=== PATIENT | male | born 2000 | race Hispanic/Latino ===

== ENCOUNTER 2021-07-11 23:49 | Inpatient (IN) | payer BC, SELFPAY ==
[2021-07-12 00:43] LABS: Urine Blood 3+ (Negative); Urine Glucose Negative (Negative); Urine Protein 2+ (Negative); Urine pH 5.5 (5.0-7.0)
[2021-07-12] MEDS ORDERED: Ringers Lactate 1,000 ML IV ONE ×2 (00:50→02:02)
[2021-07-12 01:03] LABS: Absolute Lymphocytes (CBC) 0.8 K/uL (0.7-4.9); Basophils % 2.2 % (0-1.3); Hematocrit 44.1 % (39.6-49.0); MPV 9.8 fL (7.6-11.3); RBC Red Blood Cell Count 5.24 M/uL (4.33-5.43)
[2021-07-12 01:31] LABS: Blood Morphology Comment NOT SEEN (NOT SEEN); Platelet Estimate ADEQ
[2021-07-12 01:48] LABS: ALT/SGPT 47 U/L (12-78); Albumin 4.3 g/dL (3.4-5.0); Alkaline Phosphatase 79 U/L (45-117); BUN Blood Urea Nitrogen 15 mg/dL (7-18); Bicarbonate 26 mmol/L (21-32); Bilirubin Direct 0.2 mg/dL (0-0.2); Bilirubin Total 1.1 mg/dL (0.2-1.0); Glucose Level 120 mg/dL (74-106); Lipase 69 U/L (73-393); Potassium 3.7 mmol/L (3.5-5.1); Protein, Total 8.2 g/dL (6.4-8.2); Sodium Level 138 mmol/L (136-145)
[2021-07-12 01:49] LABS: AST/SGOT 350 U/L (15-37); Creatine Phosphokinase > 14000 U/L (39-308)
--- NOTE | 2021-07-12 02:23 | ER ---
Nurse's Notes [facility] Name: Luis Hooper Age: 20 yrs Sex: Male : 2000 Arrival Date: 07/11/2021 Time: 23:54 Bed 5 Private MD: Diagnosis: Rhabdomyolysis Presentation: 07/12 00:12 Chief complaint: Patient states: vomiting and body aches since yesterday. Coronavirus df1 screen: Vaccine status: Patient reports being unvaccinated. The client denies any previous COVID testing. Ebola Screen: Patient negative for fever greater than or equal to 101.5 degrees Fahrenheit, and additional compatible Ebola Virus Disease symptoms Patient denies exposure to infectious person. Patient denies travel to an Ebola-affected area in the 21 days before illness onset. Initial Sepsis Screen: Does the patient meet any 2 criteria? No. Patient's initial sepsis screen is negative. Does the patient have a suspected source of infection? No. Patient's initial sepsis screen is negative. Risk Assessment: Do you want to hurt yourself or someone else? Patient reports no desire to harm self or others. Onset of symptoms was July 10, 2021. 00:12 Method Of Arrival: Ambulatory df1 00:12 Acuity: SOLE 3 df1 00:16 Note Pt states woke up Friday morning feeling weak and vomiting. Today pt states df1 generalized body aches and fatigue. Last BM on Friday. Triage Assessment: 00:35 General: Appears in no apparent distress. Behavior is calm, cooperative. Pain: Denies cw2 pain. EENT: No deficits noted. Neuro: No deficits noted. Cardiovascular: No deficits noted. Respiratory: No deficits noted. GI: Reports nausea. Historical: - Allergies: 00:15 No Known Allergies; df1 - Home Meds: 00:15 None [Active]; df1 - PMHx: 00:15 None; df1 - PSHx: 00:15 None; df1 - Immunization history:: Adult Immunizations not up to date, Client reports having NOT received the Covid vaccine. - Social history:: Smoking status: Patient denies any tobacco usage or history of. - Code Status:: Full code. Screenin:36 Abuse screen: Denies threats or abuse. Nutritional screening: No deficits noted. cw2 Tuberculosis screening: No symptoms or risk factors identified. Fall Risk IV access (20 points). Assessment: 00:36 General: Appears in no apparent distress. Pain: Denies pain. Neuro: No deficits noted. cw2 Cardiovascular: No deficits noted. Respiratory: No deficits noted. GI: Abdomen is flat, non-distended. : No deficits noted. Vital Signs: 00:12 BP 134 / 93; Pulse 120; Resp 18; Temp 98.2(O); Pulse Ox 100% on R/A; Weight 52.57 kg; df1 Height 5 ft. 9 in. (175.26 cm); Pain 07/08; 00:12 Body Mass Index 17.12 (52.57 kg, 175.26 cm) df1 [place] Coma Score: 00:36 Eye Response: spontaneous(4). Verbal Response: oriented(5). Motor Response: obeys cw2 commands(6). Total: 15. ED Course: 07/11 23:54 Patient arrived in ED. cf2 07/12 00:15 Triage completed. df1 00:18 Aj Harp PA is PHCP. jr8 00:18 Mono Shaikh MD is Attending Physician. jr8 00:22 Valentin Olivia, RN is Primary Nurse. cw2 00:34 Basic Metabolic Panel Sent. cw2 00:34 CBC with Diff Sent. cw2 00:34 Hepatic Function Sent. cw2 00:34 Lipase Sent. cw2 00:35 Arm band placed on left wrist. Patient placed in an exam room, on a stretcher, on cw2 monitoring specialist, on pulse oximetry. 00:36 No apparent distress. cw2 00:36 No provider procedures requiring assistance completed. Initial lab(s) drawn, by ar, cw2 sent to lab. Urine collected: clean catch specimen, clear. Inserted saline lock: 20 gauge in right antecubital area, using aseptic technique. Blood collected. 00:36 Patient has correct armband on for positive identification. Bed in low position. Call cw2 light in reach. Side rails up X2. Door closed. Noise minimized. Lights dimmed. Moved to private room. 01:03 Urine Dipstick-Ancillary Sent. cw2 01:11 Creatine Phosphokinase Sent. cw2 01:35 CK Sent. cw2 02:03 Piotr Shaikh MD is Hospitalizing Provider. jr8 Administered Medications: 00:34 Drug: Ringers - Lactated Ringers Solution 1000 ml Route: IV; Rate: bolus; Site: right cw2 antecubital; 01:35 Drug: Ringers - Lactated Ringers Solution 1000 ml Route: IV; Rate: bolus; Site: right cw2 antecubital; 02:02 Drug: NS 0.9% 1000 ml Route: IV; Rate: 250 ml/hr; Site: right antecubital; cw2 Outcome: 00:36 Condition: good cw2 02:03 Decision to Hospitalize by Provider. jr8 06:14 Patient left the ED. cw2 Signatures: Aj Harp PA PA jr8 Jessie Dawkins cf2 Haylee Bronson df1 Valentin Olivia RN RN cw2 Corrections: (The following items were deleted from the chart) 00:53 00:34 CORONAVIRUS+ drawn and sent. cw2 EDMS
--- NOTE | 2021-07-12 02:23 | EDPHYS ---
Physician Documentation [facility] Name: Luis Hooper Age: 20 yrs Sex: Male : 2000 Arrival Date: 07/11/2021 Time: 23:54 Bed 5 Private MD: ED Physician Mono Shaikh HPI: 07/12 00:36 This 20 yrs old Male presents to ER via Ambulatory with complaints of jr8 Vomiting, Arm Pain, Anxiety, BODY ACHES. 00:36 Onset: The symptoms/episode began/occurred acutely, yesterday. Severity of symptoms: At jr8 their worst the symptoms were moderate in the emergency department the symptoms are unchanged. The patient has not experienced similar symptoms in the past. The patient has not recently seen a physician. This is a 20-year-old male patient that presented to the emergency room with persistent nausea, dizziness, body aches. Patient stated that it started with symptoms yesterday including vomiting. Denies any more vomiting today but feels increasingly weak and dizzy.. Historical: - Allergies: 00:15 No Known Allergies; df1 - Home Meds: 00:15 None [Active]; df1 - PMHx: 00:15 None; df1 - PSHx: 00:15 None; df1 - Immunization history:: Adult Immunizations not up to date, Client reports having NOT received the Covid vaccine. - Social history:: Smoking status: Patient denies any tobacco usage or history of. - Code Status:: Full code. ROS: 00:40 Eyes: Negative for injury, pain, redness, and discharge, ENT: Negative for injury, jr8 pain, and discharge, Neck: Negative for injury, pain, and swelling, Cardiovascular: Negative for chest pain, palpitations, and edema, Respiratory: Negative for shortness of breath, cough, wheezing, and pleuritic chest pain, Back: Negative for injury and pain, MS/Extremity: Negative for injury and deformity, Skin: Negative for injury, rash, and discoloration. 00:40 Constitutional: Positive for body aches. 00:40 Abdomen/GI: Positive for nausea and vomiting, Negative for abdominal pain, diarrhea. 00:40 Neuro: Positive for headache. Exam: 00:40 Eyes: Pupils equal round and reactive to light, extra-ocular motions intact. Lids and jr8 lashes normal. Conjunctiva and sclera are non-icteric and not injected. Cornea within normal limits. Periorbital areas with no swelling, redness, or edema. ENT: Nares patent. No nasal discharge, no septal abnormalities noted. Tympanic membranes are normal and external auditory canals are clear. Oropharynx with no redness, swelling, or masses, exudates, or evidence of obstruction, uvula midline. Mucous membranes moist. Neck: Trachea midline, no thyromegaly or masses palpated, and no cervical lymphadenopathy. Supple, full range of motion without nuchal rigidity, or vertebral point tenderness. No Meningismus. Respiratory: Lungs have equal breath sounds bilaterally, clear to auscultation and percussion. No rales, rhonchi or wheezes noted. No increased work of breathing, no retractions or nasal flaring. Abdomen/GI: Soft, non-tender, with normal bowel sounds. No distension or tympany. No guarding or rebound. No evidence of tenderness throughout. Back: No spinal tenderness. No costovertebral tenderness. Full range of motion. Skin: Warm, dry with normal turgor. Normal color with no rashes, no lesions, and no evidence of cellulitis. MS/ Extremity: Pulses equal, no cyanosis. Neurovascular intact. Full, normal range of motion. Neuro: Awake and alert, GCS 15, oriented to person, place, time, and situation. Cranial nerves II-XII grossly intact. Motor strength 5/5 in all extremities. Sensory grossly intact. 00:40 Cardiovascular: Rate: tachycardic, Rhythm: regular, Pulses: Pulses are 2+ in right radial artery and left radial artery. Heart sounds: normal, normal S1and S2, no S3 or S4, no murmur, no rub, no gallop, Edema: is not appreciated. Vital Signs: 00:12 BP 134 / 93; Pulse 120; Resp 18; Temp 98.2(O); Pulse Ox 100% on R/A; Weight 52.57 kg; df1 Height 5 ft. 9 in. (175.26 cm); Pain 10/10; 00:12 Body Mass Index 17.12 (52.57 kg, 175.26 cm) df1 [place] Coma Score: 00:36 Eye Response: spontaneous(4). Verbal Response: oriented(5). Motor Response: obeys cw2 commands(6). Total: 15. MDM: 00:18 Patient medically screened. 8 01:58 Data reviewed: vital signs, nurses notes, lab test result(s). Data interpreted: Pulse jr8 oximetry: on room air is 100 %. Interpretation: normal. Counseling: I had a detailed discussion with the patient and/or guardian regarding: the historical points, exam findings, and any diagnostic results supporting the discharge/admit diagnosis, lab results, the need for further work-up and treatment in the hospital. 07/12 00:20 Order name: Basic Metabolic Panel; Complete Time: 02:23 8 07/12 00:20 Order name: CBC with Diff; Complete Time: :33 [facility] 07/12 00:20 Order name: Hepatic Function; Complete Time: 02:23 [facility] 07/12 00:20 Order name: Lipase; Complete Time: 02:23 [facility] 07/12 00:43 Order name: Urine Dipstick-Ancillary; Complete Time: 01:05 [facility] 07/12 00:53 Order name: Urine Dipstick-Ancillary [facility] 07/12 00:53 Order name: SARS-COV-2 RT PCR; Complete Time: 02:23 [facility] 07/12 01:05 Order name: CK jr 07/12 01:11 Order name: Creatine Phosphokinase; Complete Time: 02:23 [facility] 07/12 01:15 Order name: Manual Differential; Complete Time: 01:33 [facility] 07/12 01:52 Order name: UDS; Complete Time: 03:16 em 07/12 01:55 Order name: [place] Screen Profile; Complete Time: 03:16 [facility] 07/12 00:20 Order name: IV Saline Lock; Complete Time: 00:34 jr8 07/12 00:20 Order name: Labs collected and sent; Complete Time: 00:34 8 07/12 00:20 Order name: Urine Dipstick-Ancillary (obtain specimen); Complete Time: 00:38 jr Administered Medications: 00:34 Drug: Ringers - Lactated Ringers Solution 1000 ml Route: IV; Rate: bolus; Site: right cw2 antecubital; 01:35 Drug: Ringers - Lactated Ringers Solution 1000 ml Route: IV; Rate: bolus; Site: right cw2 antecubital; 02:02 Drug: NS 0.9% 1000 ml Route: IV; Rate: 250 ml/hr; Site: right antecubital; cw2 Disposition: 02:40 Co-signature as Attending Physician, Mono Shaikh MD I agree with the assessment and rn plan of care. PA/BURGLAR ALARM INSTALLER's history reviewed, patient interviewed, and examined. HPI: 20-year-old male with generalized fatigue and malaise presents with soreness of entire body. Denies drug use or alcohol. Does report strange day yesterday where he woke up on the couch and did not realize where he was or why he was there, went upstairs to go back to sleep and sheets were thrown off of the bed and did not know what was going on. Denies any trauma or new exercise routine. No new drugs or medications. My personal exam of patient reveals: Benign abdominal exam, very thin male, no focal muscular tenderness or abnormality. Normal neuro exam. I agree with assessment and care plan and confirm the diagnosis (es) above. Disposition Summary: 07/12/21 02:03 Hospitalization Ordered Hospitalization Status: Inpatient Admission jr8 Provider: Piotr Shaikh Location: Telemetry/MedSur (Inpatient) 8 Condition: Stable jr8 Problem: new jr8 Symptoms: have improved jr8 Bed/Room Type: Standard [facility] Room Assignment: 219(07/12/21 04:59) rd1 Diagnosis - Rhabdomyolysis jr Forms: - Medication Reconciliation Form jr8 - SBAR form jr8 Signatures: Dispatcher [employer] EDMS Mono Shaikh MD MD rn Roszak, Josh, PA PA jr8 Enoch Eduardo, [employer] DRILLER-C NATURAL [employer] SHOTHOLE DRILLER-Cla1 Jessica Henley RN RN rd1 Haylee Bronson df1 aVlentin Olivia RN RN cw2 Corrections: (The following items were deleted from the chart) 00:53 00:21 CORONAVIRUS+MR.LAB.BRZ ordered. EDMA EDMS 01:11 01:06 Creatine Phosphokinase ordered. EDMA EDMS 04:59 02:03 jrEh rd1
[2021-07-12 02:50] LABS: Barbiturates NEGATIVE (NEGATIVE); Benzodiazepines NEGATIVE (NEGATIVE); Cocaine NEGATIVE (NEGATIVE); METHAMPHETAM NEGATIVE (NEGATIVE); Methadone NEGATIVE (NEGATIVE); Opiates NEGATIVE (NEGATIVE); Phencyclidine NEGATIVE (NEGATIVE); THC Cannibis NEGATIVE (NEGATIVE)
--- NOTE | 2021-07-12 03:23 | P.HP ---
Certification for Inpatient Patient admitted to: Observation With expected LOS: <2 Midnights Patient will require the following post-hospital care: None Practitioner: I am a practitioner with admitting privileges, knowledge of patient current condition, hospital course, and medical plan of care. Services: Services provided to patient in accordance with Admission requirements found in Title 42 Section 412.3 of the Code of Federal Regulations <Enoch Eduardo - Last Filed: 07/12/21 03:18> Patient History Date of Service: 07/12/21 Primary Care Provider: None Reason for admission: Rhabdomyolysis History of Present Illness: 19-year-old male with no medical history presents emergency room for body aches, malaise/fatigue. Patient reports he had an episode 2 days ago where he went to sleep in his bed and woke up downstairs in the living room by the couch, did not remember how he ended up there, the next day patient had right arm pain as well as some vomiting ever since then has been having myalgias. Patient denies any drug use, alcohol use, trauma, signs of infection or illness, supplement use, [id number] medicine use. Patient was evaluated labs are significant for white blood cell count 13 T bili 1.1 AST 350 CPK greater than 14,000 urinalysis with 3+ blood 2+ protein urine drug screen negative Covid test negative vital signs stable renal function intact at this time, ED prior wishes to admit under observation for rhabdomyolysis. - Past Medical/Surgical History -: None -: None Psychosocial/ Personal History: Unemployed lives at home with his mother and siblings - Family History Mother -: Cancer - Social History Smoking Status: Never smoker Alcohol use: No CD- Drugs: No Caffeine use: Yes Place of Residence: Home <Enoch Eduardo - Last Filed: 07/12/21 03:18> Date of Service: 07/12/21 <Piotr Shaikh - Last Filed: 07/12/21 16:20> Review of Systems 10-point ROS is otherwise unremarkable General: Weakness, Malaise, Other (Myalgias) <Enoch Eduardo - Last Filed: 07/12/21 03:18> Physical Examination - Physical Exam General: Alert, In no apparent distress, Oriented x3 HEENT: Atraumatic, PERRLA, Other (Mucous membranes dry), EOMI, Sclerae nonicteric Neck: Supple, 2+ carotid pulse no bruit, No LAD, Without JVD or thyroid abnormality Respiratory: Clear to auscultation bilaterally, Normal air movement Cardiovascular: Regular rate/rhythm, Normal S1 S2 Gastrointestinal: Normal bowel sounds, No tenderness Musculoskeletal: No tenderness Integumentary: No rashes Neurological: Normal gait, Normal speech, Normal strength at 5/5 x4 extr, Normal tone, Normal affect Lymphatics: No axilla or inguinal lymphadenopathy - Studies Laboratory Data (last 24 hrs) 07/12/21 00:32: WBC 13.00 H, Hgb 14.7, Hct 44.1, Plt Count 192 07/12/21 00:32: Sodium 138, Potassium 3.7, BUN 15, Creatinine 1.24, Glucose 120 H, Total Bilirubin 1.1 H, AST 350 H*, ALT 47, Alkaline Phosphatase 79, Lipase 69 L <Enoch Eduardo - Last Filed: 07/12/21 03:18> - Studies Laboratory Data (last 24 hrs) 07/12/21 13:15: Sodium 143, Potassium 3.8, BUN 11, Creatinine 0.85, Glucose 107 H, Total Bilirubin 1.2 H, AST 331 H*, ALT 44, Alkaline Phosphatase 54 07/12/21 06:59: Uric Acid 6.6 07/12/21 06:59: Phosphorus 3.9, Magnesium 2.2 07/12/21 00:32: WBC 13.00 H, Hgb 14.7, Hct 44.1, Plt Count 192 07/12/21 00:32: Sodium 138, Potassium 3.7, BUN 15, Creatinine 1.24, Glucose 120 H, Total Bilirubin 1.1 H, AST 350 H*, ALT 47, Alkaline Phosphatase 79, Lipase 69 L <Piotr Shaikh - Last Filed: 07/12/21 16:20> Assessment and Plan - Plan Assessment: Rhabdomyolysis Elevated aminotransferase levels Plan: Rhabdomyolysis: Unknown etiology, patient reports that the other night he took some NyQuil before going to bed, woke up on the couch after going to sleep in his bed upstairs, when he returned he noticed that his bed sheets on the floor unknown events between then. Patient had right arm pain the following day as well as myalgias and vomiting. Renal function intact at this time we will continue with aggressive IV fluids, recheck CPK levels with electrolytes. Patient adamantly denies any drug use, supplement use, caffeine use no signs of other infections at this time. Patient not currently sexually active. Will continue to monitor closely. Elevated aminotransferase levels: AST elevated to 350 will obtain ultrasound. Patient asymptomatic at this time. Patient denies use of alcohol or chronic use of Tylenol reports taking 1 Tylenol the other night. DVT PPX: Lovenox Code status: Full Discharge Plan: Home Plan to discharge in: 24 Hours - Advance Directives Does patient have a Living Will: No Does patient have a Durable POA for Healthcare: No - Code Status/Comfort Care Code Status Assessed: Yes (Full code) Critical Care: No Time Spent Managing Pts Care (In Minutes): 55 <Enoch Eduardo - Last Filed: 07/12/21 03:18> - Plan Patient seen and examined on rounds this morning. Reports some slight improvement in his body aches/muscle soreness No new symptoms. Nothing new to add to his history. Denies any other medications or drug use. Patient's mother reports patient does have significant anxiety, does not want to leave the house, gets very anxious and shakes at times. Patient denies any sick contacts No family history of seizure activity Patient denies any urinary or stool incontinence. He does state when he woke up on the couch that his shorts were wet, which he attributed to sweat (not wearing her shirt), and thinks the pillow was wet as well, he felt warm when he woke up. Unclear etiology of rhabdomyolysis Possibly infectious, viral versus bacterial, ESR, CRP, pro-Celio ordered, monoscreen negative Nephrology consulted for WESTLEY, continue IV fluids <Piotr Shaikh - Last Filed: 07/12/21 16:20>
[2021-07-12] MEDS ORDERED: ONDANSETRON 4 MG/2 ML VIAL IV PRN (04:59)
[2021-07-12] MEDS: NA CHLORIDE 0.9% 1,000 ML IV SCH ×4 (04:59→21:09)
[2021-07-12 05:12] VITALS: BMI 17.7
[2021-07-12 07:24] LABS: C-Reactive Protein 46.6 mg/L (<3.00); Uric Acid 6.6 mg/dL (3.5-7.2)
--- NOTE | 2021-07-12 07:41 | RAD REPORT ---
EXAM DESCRIPTION: US - Abdomen Exam Limited - 07/12/2021 6:22 am CLINICAL HISTORY: eval liver/gallbladder COMPARISON: No comparisons FINDINGS: The gallbladder demonstrates no gallstones. No pericholecystic fluid or gallbladder wall t hickening. The common bile duct is normal measuring 3 mm. The liver demonstrates no findings of intrahepatic biliary dilatation. IMPRESSION: Unremarkable examination.
[2021-07-12 07:53] LABS: Creatine Phosphokinase > 14000 U/L (39-308); Magnesium 2.2 mg/dL (1.8-2.4); Phosphorus 3.9 mg/dL (2.5-4.9)
[2021-07-12] MEDS ORDERED: INFLUENZA VACCINE (for 6+ mo) 0.5 ML DOSE IMVAC ONE (08:00)
[2021-07-12] MEDS: ACETAMINOPHEN 500 MG TAB PO PRN (09:02)
[2021-07-12] MEDS: ENOXAPARIN 40 MG/0.4 ML SQ SCH (09:05)
[2021-07-12] MEDS ORDERED: POTASSIUM CL SA 10 MEQ TAB PO ONE (09:23)
--- NOTE | 2021-07-12 11:56 | P.CNS ---
Date of Consult: 07/12/21 Reason for Consult: Rhabdomyolysis Requesting Physician: Piotr Shaikh Primary Care Provider: None Chief Complaint: Rhabdomyolysis History of Present Illness: 19-year-old male with no medical history presents emergency room for body aches, malaise/fatigue. Patient reports he had an episode 2 days ago where he went to sleep in his bed and woke up downstairs in the living room by the couch, did not remember how he ended up there, the next day patient had right arm pain as well as some vomiting ever since then has been having myalgias. Patient denies any drug use, alcohol use, trauma, signs of infection or illness, supplement use, zrwf-zlz-uvjousn medicine use. Patient was evaluated labs are significant for white blood cell count 13 T bili 1.1 AST 350 CPK greater than 14,000 urinalysis with 3+ blood 2+ protein urine drug screen negative Covid test negative vital signs stable renal function intact at this time, ED prior wishes to admit under observation for rhabdomyolysis. 00:36 This 20 yrs old Male presents to ER via Ambulatory with complaints of jr8 Vomiting, Arm Pain, Anxiety, BODY ACHES. 00:36 Onset: The symptoms/episode began/occurred acutely, yesterday. Severity of symptoms: At jr8 their worst the symptoms were moderate in the emergency department the symptoms are unchanged. The patient has not experienced similar symptoms in the past. The patient has not recently seen a physician. This is a 20-year-old male patient that presented to the emergency room with persistent nausea, dizziness, body aches. Patient stated that it started with symptoms yesterday including vomiting. Denies any more vomiting today but feels increasingly weak and dizzy.. Allergies No Known Allergies Allergy (Unverified 07/12/21 05:09) Home medications list reviewed: Yes Home Medications: NK [No Home Meds] 07/12/21 - Past Medical/Surgical History Diabetic: No -: None -: None Psychosocial/ Personal History: Unemployed lives at home with his mother and siblings - Family History Mother Medical History: Cancer - Social History Alcohol use: No CD- Drugs: No Caffeine use: Yes Place of Residence: Home Review of Systems 10-point ROS is otherwise unremarkable General: Weakness, Malaise Physical Examination Temp Pulse Resp BP Pulse Ox 98.0 F 83 16 147/76 H 100 07/12/21 10:02 07/12/21 08:00 07/12/21 08:00 07/12/21 09:02 07/12/21 08:00 General: Oriented x3, Cooperative HEENT: Atraumatic Neck: Supple Respiratory: Clear to auscultation bilaterally Cardiovascular: No edema, Regular rate/rhythm Gastrointestinal: Soft and benign, Non-distended Musculoskeletal: No clubbing, No contractures Integumentary: No rashes, No cyanosis Neurological: Normal speech Laboratory Data (last 24 hrs) 07/12/21 00:32: WBC 13.00 H, Hgb 14.7, Hct 44.1, Plt Count 192 07/12/21 00:32: Sodium 138, Potassium 3.7, BUN 15, Creatinine 1.24, Glucose 120 H, Total Bilirubin 1.1 H, AST 350 H*, ALT 47, Alkaline Phosphatase 79, Lipase 69 L Imagings Data: EXAM DESCRIPTION: US - Abdomen Exam Limited - 07/12/2021 6:22 am CLINICAL HISTORY: eval liver/gallbladder COMPARISON: No comparisons FINDINGS: The gallbladder demonstrates no gallstones. No pericholecystic fluid or gallbladder wall thickening. The common bile duct is normal measuring 3 mm. The liver demonstrates no findings of intrahepatic biliary dilatation. IMPRESSION: Unremarkable examination. Conclusions/Impression: WESTLEY in the setting of rhabdomyolysis Proteinuria -Continue IVF Rhabdomyolysis of unclear etiology -Aggressive IVF Hypocalcemia -Start Vitamin D3 Elevated BP without a hx of HTN -Monitor BP Thank you kindly for the consultation.
[2021-07-12 14:01] LABS: ALT/SGPT 44 U/L (12-78); Alkaline Phosphatase 54 U/L (45-117); BUN Blood Urea Nitrogen 11 mg/dL (7-18); Bicarbonate 27 mmol/L (21-32); Bilirubin Total 1.2 mg/dL (0.2-1.0); Glucose Level 107 mg/dL (74-106); Potassium 3.8 mmol/L (3.5-5.1); Sodium Level 143 mmol/L (136-145)
[2021-07-12 14:03] LABS: AST/SGOT 331 U/L (15-37)
--- NOTE | 2021-07-12 17:19 | RAD REPORT ---
EXAM DESCRIPTION: RAD - Chest Single View - 07/12/2021 4:58 pm CLINICAL HISTORY: elevated procal, vomiting, r/o pneumonia Chest pain. COMPARISON: No comparisons FINDINGS: Portable technique limits examination quality. The lungs are grossly clear. The heart is normal in size. No displaced fractures. IMPRESSION: No acute intrathoracic process suspected.
[2021-07-13 05:34] LABS: Basophils % 0.5 % (0-1.3); Hematocrit 34.1 % (39.6-49.0); Lymphocytes % 25.3 % (15.3-44.8); RBC Red Blood Cell Count 4.07 M/uL (4.33-5.43)
--- NOTE | 2021-07-13 06:10 | P.PN ---
Date of Service: 07/13/21 Subjective: No acute events overnight, patient reports feeling much better today. Still has body aches/soreness most of his muscles. No particular areas worse than the rest No new complaints ROS: 10 point review of systems otherwise negative Physical Exam General: Alert, In no apparent distress, Oriented x3 HEENT: Normal conjunctiva, sclera anicteric Respiratory: Clear to auscultation bilaterally, Normal air movement Cardiovascular: Regular rate/rhythm, Normal S1 S2 Gastrointestinal: Soft, nontender, nondistended Musculoskeletal: Diffuse mild tenderness/soreness with palpation of muscles throughout the body Integumentary: No rashes Neurological: Normal gait, Normal speech, Normal strength at 5/5 x4 extr, Normal tone, Normal affect Problem list: Rhabdomyolysis WESTLEY secondary to rhabdomyolysis Isolated AST elevation, secondary to rhabdomyolysis Unknown etiology of rhabdomyolysis Concern for seizure vs immobility vs myositis, vs infectious Inflammatory markers elevated, but improving, has not been on antibiotics. T- max yesterday was 100.1. afebrile unclear if patient had urinary incontinence - reported shorts were soaked with what he thought was sweat Today patient's mom states the brother noted hearing sounded like furniture moving the middle of the night. Patient was sleepwalking and may have fallen, or he was downstairs and had a seizure near some of furniture. It is unclear what exactly happened, patient does not recall any of these events. Patient did appear to be slow to answer, decreased mentation after admission, much improved today. Possible postictal state WESTLEY resolved with IV fluids, nephrology consulted, myoglobin ordered Continue to monitor electrolytes Dispo: anticipate dc home in 1-2 days Time Spent Managing Pts Care (In Minutes): 35
[2021-07-13 06:27] LABS: ALT/SGPT 47 U/L (12-78); Albumin 3.1 g/dL (3.4-5.0); Alkaline Phosphatase 53 U/L (45-117); BUN Blood Urea Nitrogen 8 mg/dL (7-18); Bicarbonate 25 mmol/L (21-32); Bilirubin Total 0.9 mg/dL (0.2-1.0); Glucose Level 102 mg/dL (74-106); Magnesium 1.9 mg/dL (1.8-2.4); Potassium 3.8 mmol/L (3.5-5.1); Sodium Level 143 mmol/L (136-145)
[2021-07-13 07:00] LABS: AST/SGOT 342 U/L (15-37); Creatine Phosphokinase > 14000 U/L (39-308)
[2021-07-13] MEDS: NA CHLORIDE 0.9% 1,000 ML IV SCH ×3 (07:39→22:36)
[2021-07-13] MEDS ORDERED: POTASSIUM CL SA 10 MEQ TAB PO ONE (09:00)
--- NOTE | 2021-07-13 10:57 | RAD REPORT ---
EXAM DESCRIPTION: CT - Head Brain Wo Cont - 07/13/2021 9:17 am CLINICAL HISTORY: Seizure COMPARISON: None TECHNIQUE: Computed axial tomography of the head was obtained. IV contrast was not requested. All CT scans are performed using dose optimization technique as appropriate and may include automated exposure control or mA/KV adjustment according to patient size. FINDINGS: An intracranial bleed is not seen . The ventricles are normal in caliber. No extra-axial fluid collection is noted. Fluid within the sinuses/ mastoids is not seen. Partial opacification sphenoid sinus probably chronic sinusitis IMPRESSION: No acute intracranial abnormality is seen. If patient's symptoms persist MRI of the bra in would be recommended.
[2021-07-13] MEDS: ENOXAPARIN 40 MG/0.4 ML SQ SCH (11:01)
[2021-07-13] MEDS: VITAMIN D 5,000 UNIT CAP PO SCH (11:02)
--- NOTE | 2021-07-13 21:43 | CON ---
Reason For Consultation: Consultation was called because of rhabdomyolysis and possible seizure. History Of Present Illness: Mr. Hooper is a 20-year-old right-handed patient, who comes to [facility] after he was found lying on the sofa, confused. The patient's mother was in t he room and provided information. She said he has not been sleeping well, playing out the video game s, and was staring at small screens which is his phone since his TV broke and his mom did not fix it. He recalls going to bed then, woke up on the sofa maybe 8 or so hours later. His brother who was i n the room above thought he heard what sounded like furniture moving about, things were being tossed and pushed around. When the patient regained awareness, he had a bruise on his right shoulder hematology oncology consultant ior region and his left forearm and at [facility] blood work was remarkable for rhabdomyolys is with his creatine kinase being greater than 14,000. His AST was 342. His procalcitonin was initi ally elevated at 2.50. After his hydration, it is down to 1.25. Otherwise, is his white blood cell count initially was 13, with 86% neutrophils, and the following day, normalized at 8, with 67% neutro phils, hemoglobin 11.8. Urinalysis 3+ blood, 2+ protein. Toxicology screen was negative. COVD-19 t est was negative. His head CT scan showed no acute ischemic or hemorrhagic change. Chest x-ray was clear. No abnormalities. Abdominal ultrasound was unremarkable. Past Medical History: No significant past medical history. Family History: Cancer in mother. Social History: No alcohol, tobacco, or IV drug use. He drinks caffeinated beverages. Review of Systems: Aside from the patient's stress, anxiety, and fear of open spaces, which is mom says while driving at times, he would tell her to go back home. He has no other generalized issues. No fevers or chills. No vomiting or nausea. He was nauseated after the event, but aside from that, none, and no other p ositives on a 10-point systems review. Physical Examination: Vital Signs: Blood pressure 139/81, pulse 82, respiratory rate 16, temperature 99.7 T-max. Oxygen s aturation 100% on room air. Weight 120 pounds. Height 5 feet 9 inches. BMI 17.7. General: Mr. Hooper is lying in bed. He is in no significant distress. He is normocephalic, atra umatic. His sclerae are anicteric. Oropharynx is pink and moist. Neck: Supple. Chest: Clear. Heart: Regular. Extremities: Show no clubbing, cyanosis, or edema. Neurologic: He is alert and oriented to person, place, time, and situation. Follows all commands ap propriately. Cranial nerves 2 through 12 intact by exam. Motor examination intact in upper and lowe r extremities with 5/5 strength proximally and distally. Sensory exam, intact in upper and lower ext remities. Coordination intact in upper and lower extremities. Reflexes 2+ and symmetric in upper an d lower extremities. Gait good stance, right arm swing. Assessment: Mr. Hooper is a 20-year-old patient with rhabdomyolysis of unclear etiology. From the description of event and what his brother heard, it is possible that he had a seizure that was prolo nged and had the rhabdomyolysis as a result. His mother said he has no history of seizures and no fa darvin history . His drug screen was negative. Neurologic exam shows no focal deficits. Plan: 1.I would not start antiepileptics at this time. 2.When able, he should have a brain MRI with and without contrast, epilepsy protocol. 3.He may have either a routine EEG or if the patient is found to be staring, which actually [facility] said that has been noted in the past, he may benefit from an ambulatory video EEG monitoring study . 4.He may be discharged home. Follow up in Dr. Robledo's clinic within a month. LEONEL/ROSALBA Voice ID: [id number] Report ID: [id number]
--- NOTE | 2021-07-13 21:44 | P.PN ---
Date of Service: 07/13/21 Vital Signs Temp Pulse Resp BP Pulse Ox 99.1 F 75 18 158/88 H 100 07/13/21 20:00 07/13/21 20:00 07/13/21 20:00 07/13/21 20:00 07/13/21 20:00 Medications Acetaminophen (Acetaminophen 500 Mg Tab) 500 mg PO Q6H PRN PRN Reason: TEMP > 101' F Last Admin: 07/12/21 09:02 Dose: 500 mg Documented by: Cholecalciferol (Vitamin D 5,000 Unit Cap) 5,000 unit PO DAILY [facility] Last Admin: 07/13/21 11:02 Dose: 5,000 unit Documented by: Enoxaparin Sodium (Enoxaparin 40 Mg/0.4 Ml) 40 mg SQ DAILY [facility] Last Admin: 07/13/21 11:01 Dose: 40 mg Documented by: Sodium Chloride (Ns 1000 Ml Ivbag) 1,000 mls @ 150 mls/hr IV .Q6H40M [facility] Last Admin: 07/13/21 15:07 Dose: 1,000 mls Documented by: Ondansetron HCl (Ondansetron 4 Mg/2 Ml Vial) 4 mg IV Q6HP PRN PRN Reason: NAUSEA / VOMITING Sodium Chloride (Flush Normal Saline 10 Ml) 10 ml IV BID [facility] Last Admin: 07/13/21 11:01 Dose: 10 ml Documented by: Assessment/ Plan: Nephrology Progress Note No chest pain or dyspnea No acute events overnight Vitals, medications blood work and imaging reviewed in the chart General: Oriented x3, Cooperative HEENT: Atraumatic Neck: Supple Respiratory: Clear to auscultation bilaterally Cardiovascular: No edema, Regular rate/rhythm Gastrointestinal: Soft and benign, Non-distended Musculoskeletal: No clubbing, No contractures Integumentary: No rashes, No cyanosis Neurological: Normal speech Laboratory Data (last 24 hrs) 07/12/21 00:32: WBC 13.00 H, Hgb 14.7, Hct 44.1, Plt Count 192 07/12/21 00:32: Sodium 138, Potassium 3.7, BUN 15, Creatinine 1.24, Glucose 120 H, Total Bilirubin 1.1 H, AST 350 H*, ALT 47, Alkaline Phosphatase 79, Lipase 69 L Imagings Data: EXAM DESCRIPTION: US - Abdomen Exam Limited - 07/12/2021 6:22 am CLINICAL HISTORY: eval liver/gallbladder COMPARISON: No comparisons FINDINGS: The gallbladder demonstrates no gallstones. No pericholecystic fluid or gallbladder wall thickening. The common bile duct is normal measuring 3 mm. The liver demonstrates no findings of intrahepatic biliary dilatation. IMPRESSION: Unremarkable examination. Conclusions/Impression: WESTLEY in the setting of rhabdomyolysis Proteinuria -Continue IVF Rhabdomyolysis of unclear etiology -Aggressive IVF Hypocalcemia -Continue Vitamin D3 Elevated BP without a hx of HTN -Monitor BP
[2021-07-14 04:30] LABS: Absolute Lymphocytes (CBC) 2.2 K/uL (0.7-4.9); Hematocrit 35.3 % (39.6-49.0); Lymphocytes % 31.9 % (15.3-44.8); RBC Red Blood Cell Count 4.23 M/uL (4.33-5.43)
[2021-07-14 06:25] LABS: ALT/SGPT 64 U/L (12-78); Alkaline Phosphatase 51 U/L (45-117); BUN Blood Urea Nitrogen 14 mg/dL (7-18); Bicarbonate 27 mmol/L (21-32); Bilirubin Total 0.7 mg/dL (0.2-1.0); Glucose Level 99 mg/dL (74-106); Magnesium 1.6 mg/dL (1.8-2.4); Phosphorus 4.7 mg/dL (2.5-4.9); Protein, Total 5.9 g/dL (6.4-8.2); Sodium Level 143 mmol/L (136-145)
[2021-07-14 06:27] LABS: AST/SGOT 430 U/L (15-37); Creatine Phosphokinase > 14000 U/L (39-308)
[2021-07-14] MEDS: VITAMIN D 5,000 UNIT CAP PO SCH (08:07)
[2021-07-14] MEDS: NA CHLORIDE 0.9% 1,000 ML IV SCH ×3 (08:07→23:30)
[2021-07-14] MEDS: ENOXAPARIN 40 MG/0.4 ML SQ SCH (08:07)
[2021-07-14] MEDS ORDERED: MAGNESIUM SULFATE 1 gm IVPB 1 GM/100 ML BAG IV ONE (09:00)
--- NOTE | 2021-07-14 14:40 | P.PN ---
Date of Service: 07/14/21 Subjective: No acute events overnight, clinically improving Reports minimal to no soreness, feels 95% back to his normal self, urinating without difficulty, urine is clean CPK remains unmeasurable, myoglobin was send out, renal function improved No new complaints ROS: 10 point review of systems otherwise negative Physical Exam General: Alert, In no apparent distress, Oriented x3 HEENT: Normal conjunctiva, sclera anicteric Respiratory: Clear to auscultation bilaterally, Normal air movement Cardiovascular: Regular rate/rhythm, Normal S1 S2 Gastrointestinal: Soft, nontender, nondistended Musculoskeletal: minimal diffuse soreness/tenderness Integumentary: posterior R shoulder with mild superficial abrasion, L forearm with ~1-2 cm ecchymosis Neurological: Normal gait, Normal speech, Normal strength at 5/5 x4 extr Problem list: Rhabdomyolysis WESTLEY secondary to rhabdomyolysis Isolated AST elevation, secondary to rhabdomyolysis Sinus tachycardia Unknown etiology of rhabdomyolysis Concern for seizure vs immobility vs myositis/myopathy, vs infectious Inflammatory markers elevated, but improving, has not been on antibiotics. afebrile; onset was sudden, less likely myositis/myopathy unclear if patient had urinary incontinence - reported shorts were soaked with what he thought was sweat. Brother reported hearing sounds as though furniture was being moved around Patient was sleepwalking and may have fallen, or he was downstairs and had a seizure near some of furniture. It is unclear what exactly happened, patient does not recall any of these events. Patient did appear to be slow to answer, decreased mentation after admission, much improved since. Possible postictal state WESTLEY resolved with IV fluids, nephrology consulted, myoglobin ordered (send out), TRISTEN sent. Continue to monitor electrolytes Yesterday evening and this morningpatient noted to have sinus tachycardia briefly, lasting only a few minutes, up to [id number]. Both times patient was in the bathroom Dispo: anticipate dc home in 1-2 days Time Spent Managing Pts Care (In Minutes): 35
--- NOTE | 2021-07-14 21:08 | P.PN ---
Date of Service: 07/14/21 Vital Signs Temp Pulse Resp BP Pulse Ox 97.8 F 92 H 20 149/81 H 100 07/14/21 20:00 07/14/21 20:00 07/14/21 20:00 07/14/21 20:00 07/14/21 20:00 Medications Acetaminophen (Acetaminophen 500 Mg Tab) 500 mg PO Q6H PRN PRN Reason: TEMP > 101' F Last Admin: 07/12/21 09:02 Dose: 500 mg Documented by: Cholecalciferol (Vitamin D 5,000 Unit Cap) 5,000 unit PO DAILY [facility] Last Admin: 07/14/21 08:07 Dose: 5,000 unit Documented by: Enoxaparin Sodium (Enoxaparin 40 Mg/0.4 Ml) 40 mg SQ DAILY [facility] Last Admin: 07/14/21 08:07 Dose: 40 mg Documented by: Sodium Chloride (Ns 1000 Ml Ivbag) 1,000 mls @ 150 mls/hr IV .Q6H40M [facility] Last Admin: 07/14/21 16:41 Dose: 1,000 mls Documented by: Ondansetron HCl (Ondansetron 4 Mg/2 Ml Vial) 4 mg IV Q6HP PRN PRN Reason: NAUSEA / VOMITING Sodium Chloride (Flush Normal Saline 10 Ml) 10 ml IV BID [facility] Last Admin: 07/14/21 08:08 Dose: Not Given Documented by: Assessment/ Plan: Nephrology Progress Note Feeling better. No chest pain or dyspnea No acute events overnight Vitals, medications blood work and imaging reviewed in the chart General: Oriented x3, Cooperative HEENT: Atraumatic Neck: Supple Respiratory: Clear to auscultation bilaterally Cardiovascular: No edema, Regular rate/rhythm Gastrointestinal: Soft and benign, Non-distended Musculoskeletal: No clubbing, No contractures Integumentary: No rashes, No cyanosis Neurological: Normal speech Laboratory Data (last 24 hrs) 07/12/21 00:32: WBC 13.00 H, Hgb 14.7, Hct 44.1, Plt Count 192 07/12/21 00:32: Sodium 138, Potassium 3.7, BUN 15, Creatinine 1.24, Glucose 120 H, Total Bilirubin 1.1 H, AST 350 H*, ALT 47, Alkaline Phosphatase 79, Lipase 69 L Imagings Data: EXAM DESCRIPTION: US - Abdomen Exam Limited - 07/12/2021 6:22 am CLINICAL HISTORY: eval liver/gallbladder COMPARISON: No comparisons FINDINGS: The gallbladder demonstrates no gallstones. No pericholecystic fluid or gallbladder wall thickening. The common bile duct is normal measuring 3 mm. The liver demonstrates no findings of intrahepatic biliary dilatation. IMPRESSION: Unremarkable examination. Conclusions/Impression: WESTLEY in the setting of rhabdomyolysis Proteinuria -Continue IVF Rhabdomyolysis of unclear etiology -Aggressive IVF Hypocalcemia -Continue Vitamin D3 Elevated BP without a hx of HTN -Monitor BP Case reviewed with Dr. Shaikh
[2021-07-15] MEDS: NA CHLORIDE 0.9% 1,000 ML IV SCH ×5 (06:19→19:39)
[2021-07-15 06:43] LABS: Protime INR 1.03
[2021-07-15 07:59] LABS: ALT/SGPT 80 U/L (12-78); Albumin 3.1 g/dL (3.4-5.0); Alkaline Phosphatase 55 U/L (45-117); BUN Blood Urea Nitrogen 21 mg/dL (7-18); Bicarbonate 28 mmol/L (21-32); Bilirubin Total 0.5 mg/dL (0.2-1.0); Glucose Level 97 mg/dL (74-106); Magnesium 1.8 mg/dL (1.8-2.4); Phosphorus 5.2 mg/dL (2.5-4.9); Protein, Total 6.5 g/dL (6.4-8.2); Sodium Level 143 mmol/L (136-145)
[2021-07-15 08:04] LABS: AST/SGOT 321 U/L (15-37)
[2021-07-15 08:05] LABS: Creatine Phosphokinase > 14000 U/L (39-308)
[2021-07-15] MEDS: ENOXAPARIN 40 MG/0.4 ML SQ SCH (08:59)
[2021-07-15] MEDS: VITAMIN D 5,000 UNIT CAP PO SCH (08:59)
[2021-07-15] MEDS ORDERED: MAGNESIUM SULFATE 1 gm IVPB 1 GM/100 ML BAG IV ONE (09:00)
--- NOTE | 2021-07-15 14:13 | P.PN ---
Date of Service: 07/15/21 Subjective: No acute events overnight, clinically improving No longer having any soreness, feels back to his normal self Has intermittent episodes of tachycardia, sinus tachycardia to 130s. Is getting up to go to the bathroom, comes back from the bathroom, or at bedside sink Remains afebrile but with temperatures to 99.9 He denies any cough, nausea/vomiting, diarrhea, abdominal pain, dysuria CPK remains unmeasurable, myoglobin was a send out, renal function improved/stable on IV fluids No new complaints ROS: 10 point review of systems otherwise negative Physical Exam General: Alert, In no apparent distress, Oriented x3 HEENT: Normal conjunctiva, sclera anicteric Respiratory: Clear to auscultation bilaterally, Normal air movement Cardiovascular: Sinus tachycardia, Normal S1 S2 Gastrointestinal: Soft, nontender, nondistended Musculoskeletal: No tenderness, no soreness Integumentary: posterior R shoulder with mild superficial abrasion, L forearm with ~1 cm ecchymosis Neurological: Normal gait, Normal speech, Normal strength at 5/5 x4 extr Problem list: Rhabdomyolysis WESTLEY secondary to rhabdomyolysis Isolated AST elevation, secondary to rhabdomyolysis Intermittent sinus tachycardia Intermittent hypertension Unknown etiology of rhabdomyolysis Concern for seizure vs immobility vs myositis/myopathy, vs infectious Inflammatory markers elevated, but improving, has not been on antibiotics. afebrile; onset was sudden, less likely myositis/myopathy. Inflammatory markers improved without any antibiotics, bacterial infection much less likely. Possible viral unclear if patient had urinary incontinence - reported shorts were soaked with what he thought was sweat. Brother reported hearing sounds as though furniture was being moved around Patient was either sleepwalking and may have fallen, or he was downstairs and had a seizure near some of furniture. It is unclear what exactly happened, patient does not recall any of these events. Patient did appear to be slow to answer, decreased mentation after admission, much improved since. Possible postictal state Neurology consulted, recommended EEG and MRIepilepsy protocol when able to obtain WESTLEY resolved with IV fluids, nephrology consulted, myoglobin ordered (send out), TRISTEN sent. Intermittent tachycardia, intermittent hypertension, patient reports intermittently feeling warm at home, has anxiety/panic. Will rule out pheochro mocytoma. Tachycardia/hypertension may just be explained by rhabdomyolysis/pain, but should be improving if this is the case Continue to monitor electrolytes CPK still remains unmeasurable, unknown if improving. The patient is clinically improved Dispo: anticipate dc home in 1-2 days Time Spent Managing Pts Care (In Minutes): 35
[2021-07-16] MEDS: NA CHLORIDE 0.9% 1,000 ML IV SCH ×2 (03:39→08:59)
--- NOTE | 2021-07-16 06:01 | P.PN ---
Date of Service: 07/16/21 Subjective: feeling well, without any complaints denies chest pain, no SOB, no muscle soreness feels back to his normal self, denies palpitaton, +anxiety ROS: 10 point review of systems otherwise negative Physical Exam General: Alert, In no apparent distress, Oriented x3 HEENT: Normal conjunctiva, sclera anicteric Respiratory: Clear to auscultation bilaterally, Normal air movement Cardiovascular: Sinus tachycardia, Normal S1 S2 Gastrointestinal: Soft, nontender, nondistended Musculoskeletal: No tenderness, no soreness Integumentary: posterior R shoulder with mild superficial abrasion, L forearm with ~1 cm ecchymosis Neurological: Normal gait, Normal speech, Normal strength at 5/5 x4 extr Problem list: Rhabdomyolysis WESTLEY secondary to rhabdomyolysis Isolated AST elevation, secondary to rhabdomyolysis Intermittent sinus tachycardia Intermittent hypertension Anxiety/Panic, associated with leaving home Unknown etiology of rhabdomyolysis Concern for seizure vs immobility vs endocrine/autoiummune myositis/myopathy, vs infectious Inflammatory markers elevated, but improving, has not been on antibiotics. afebrile; onset was sudden, less likely myositis/myopathy. Inflammatory markers improved without any antibiotics, bacterial infection much less likely. Possible viral unclear if patient had urinary incontinence - reported shorts were soaked with what he thought was sweat, didn't smell like urine. Brother reported hearing sounds as though furniture was being moved around Patient was either sleepwalking and may have fallen, or he was downstairs and had a seizure near some of furniture. It is unclear what exactly happened, patient does not recall any of these events. Patient did appear to be slow to answer, decreased mentation after admission, much improved since. Possible postictal state Neurology consulted, recommended EEG and MRIepilepsy protocol when able to obtain - MRI to be done today WESTLEY resolved with IV fluids, nephrology consulted, myoglobin ordered (send out), TRISTEN sent. Intermittent tachycardia, intermittent hypertension, patient reports intermittently feeling warm at home, has anxiety/panic. Will rule out pheochromocytoma. Sinus tachycardia up to 120-130s just walking a few feet to sink / going to bathroom. Up to 160s briefly today, asymptomatic. echo ordered Tachycardia/hypertension may just be explained by rhabdomyolysis/pain, but should be improving if this is the case Continue to monitor electrolytes CPK finally < 14,000, AST improving patient anxious to go home will dc IVF for now, monitor, possible dc in next 1-2 days if consistent improvement and echo/MRI ok. myoglobin still not back (send out) Dispo: anticipate dc home in 1-2 days Time Spent Managing Pts Care (In Minutes): 35
[2021-07-16 06:13] LABS: Absolute Lymphocytes (CBC) 2.1 K/uL (0.7-4.9); Basophils % 0.6 % (0-1.3); Hematocrit 37.1 % (39.6-49.0); Lymphocytes % 24.5 % (15.3-44.8); MPV 9.7 fL (7.6-11.3); RBC Red Blood Cell Count 4.42 M/uL (4.33-5.43)
[2021-07-16 06:22] LABS: ALT/SGPT 99 U/L (12-78); AST/SGOT 216 U/L (15-37); Albumin 3.1 g/dL (3.4-5.0); Alkaline Phosphatase 54 U/L (45-117); BUN Blood Urea Nitrogen 12 mg/dL (7-18); Bicarbonate 26 mmol/L (21-32); Bilirubin Total 0.6 mg/dL (0.2-1.0); C-Reactive Protein 6.85 mg/L (<3.00); Glucose Level 96 mg/dL (74-106); Magnesium 1.8 mg/dL (1.8-2.4); Potassium 3.9 mmol/L (3.5-5.1); Protein, Total 6.2 g/dL (6.4-8.2); Sodium Level 141 mmol/L (136-145)
[2021-07-16 07:50] LABS: Urine Appearance CLEAR (Clear); Urine Bilirubin NEGATIVE (Negative); Urine Blood NEGATIVE (Negative); Urine Color YELLOW (Yellow); Urine Glucose NEGATIVE (Negative); Urine Protein NEGATIVE (Negative); Urine Specific Gravity 1.015 (1.005-1.030); Urine Urobilinogen 0.2 mg/dL (0.2-1.0); Urine pH 5.5 (5.0-7.0)
[2021-07-16 08:06] LABS: Urine Bacteria <20 /HPF (NONE SEEN); Urine Mucus 1+ /HPF (NONE SEEN); Urine RBC NONE SEEN /HPF (NONE SEEN)
--- NOTE | 2021-07-16 09:03 | EKG ---
Test Date: 2021-07-14 Test Time: 00:04:46 Juice Standardizer: VALERIE MEASUREMENT RESULTS: Intervals: Rate: 68 RI: 136 QRSD: 88 QT: 362 QTc: 384 Wheeler: P: 64 RI: 136 QRS: 76 T: 49 INTERPRETIVE STATEMENTS: Sinus rhythm with marked sinus arrhythmia RSR' or QR pattern in V1 suggests right ventricular conduction delay Borderline ECG No previous ECG available for comparison Electronically Signed On 07-16-21 08:57:53 CDT by Abrahan Jaime
--- NOTE | 2021-07-16 09:25 | RAD REPORT ---
EXAM DESCRIPTION: MRI - Brain W/Wo Cont - 07/16/2021 8:33 am CLINICAL HISTORY: Epilepsy COMPARISON: CT 07/16/2021 TECHNIQUE: Sagittal and axial T1-weighted images were obtained. Axial PD/heavily T2-weighted and T2- FLAIR images were obtained along with axial DWI/ADC mapping sequences. Axial and coronal post-contras t T1-weighted images were also obtained. FINDINGS: No intracranial hemorrhage, mass or acute infarction. There is no edema or shift of midlin e structures. No extra-axial fluid collections. Pappas-matter/white matter junction is preserved. Signa l voids are seen as a normal finding in the major intracranial vessels. The medial temporal lobes hav e a normal configuration. Mucous retention cyst in an expanded left sphenoid sinus. Post-contrast images show normal enhancement. No dural thickening. Mastoid air cells and paranasal sinuses are clear. IMPRESSION: No acute intracranial abnormality. No abnormal enhancement. No specific findings to expl ain seizures.
[2021-07-16] MEDS: VITAMIN D 5,000 UNIT CAP PO SCH (10:08)
[2021-07-16] MEDS: ENOXAPARIN 40 MG/0.4 ML SQ SCH (10:08)
--- NOTE | 2021-07-16 20:57 | P.PN ---
Date of Service: 07/16/21 Vital Signs Temp Pulse Resp BP Pulse Ox 97.9 F 93 H 18 130/68 100 07/16/21 20:00 07/16/21 20:00 07/16/21 20:00 07/16/21 20:00 07/16/21 20:00 Medications Acetaminophen (Acetaminophen 500 Mg Tab) 500 mg PO Q6H PRN PRN Reason: TEMP > 101' F Last Admin: 07/12/21 09:02 Dose: 500 mg Documented by: Cholecalciferol (Vitamin D 5,000 Unit Cap) 5,000 unit PO DAILY [facility] Last Admin: 07/16/21 10:08 Dose: 5,000 unit Documented by: Enoxaparin Sodium (Enoxaparin 40 Mg/0.4 Ml) 40 mg SQ DAILY [facility] Last Admin: 07/16/21 10:08 Dose: 40 mg Documented by: Ondansetron HCl (Ondansetron 4 Mg/2 Ml Vial) 4 mg IV Q6HP PRN PRN Reason: NAUSEA / VOMITING Sodium Chloride (Flush Normal Saline 10 Ml) 10 ml IV BID [facility] Last Admin: 07/16/21 09:00 Dose: 10 ml Documented by: Assessment/ Plan: Nephrology Progress Note Feeling better. Good urine output. No chest pain or dyspnea No acute events overnight Vitals, medications blood work and imaging reviewed in the chart General: Oriented x3, Cooperative HEENT: Atraumatic Neck: Supple Respiratory: Clear to auscultation bilaterally Cardiovascular: No edema, Regular rate/rhythm Gastrointestinal: Soft and benign, Non-distended Musculoskeletal: No clubbing, No contractures Integumentary: No rashes, No cyanosis Neurological: Normal speech Laboratory Data (last 24 hrs) 07/12/21 00:32: WBC 13.00 H, Hgb 14.7, Hct 44.1, Plt Count 192 07/12/21 00:32: Sodium 138, Potassium 3.7, BUN 15, Creatinine 1.24, Glucose 120 H, Total Bilirubin 1.1 H, AST 350 H*, ALT 47, Alkaline Phosphatase 79, Lipase 69 L Imagings Data: EXAM DESCRIPTION: US - Abdomen Exam Limited - 07/12/2021 6:22 am CLINICAL HISTORY: eval liver/gallbladder COMPARISON: No comparisons FINDINGS: The gallbladder demonstrates no gallstones. No pericholecystic fluid or gallbladder wall thickening. The common bile duct is normal measuring 3 mm. The liver demonstrates no findings of intrahepatic biliary dilatation. IMPRESSION: Unremarkable examination. Conclusions/Impression: WESTLEY in the setting of rhabdomyolysis Proteinuria -Discontinue IVF Rhabdomyolysis of unclear etiology -Discontinue IVF Hypocalcemia -Continue Vitamin D3 Elevated BP without a hx of HTN -Monitor BP -24 hour urine for metanephrines Case reviewed with Dr. Shaikh
[2021-07-17 05:32] LABS: Basophils % 0.5 % (0-1.3); Lymphocytes % 23.2 % (15.3-44.8); MPV 9.2 fL (7.6-11.3); RBC Red Blood Cell Count 4.76 M/uL (4.33-5.43)
[2021-07-17 06:01] LABS: ALT/SGPT 148 U/L (12-78); AST/SGOT 166 U/L (15-37); Albumin 3.3 g/dL (3.4-5.0); Alkaline Phosphatase 58 U/L (45-117); BUN Blood Urea Nitrogen 15 mg/dL (7-18); Bicarbonate 28 mmol/L (21-32); Bilirubin Total 0.4 mg/dL (0.2-1.0); Glucose Level 94 mg/dL (74-106); Magnesium 1.9 mg/dL (1.8-2.4); Potassium 4.1 mmol/L (3.5-5.1); Protein, Total 6.9 g/dL (6.4-8.2); Sodium Level 140 mmol/L (136-145)
[2021-07-17 06:04] LABS: Creatine Phosphokinase 4685 U/L (39-308)
[2021-07-17] MEDS: ACETAMINOPHEN 500 MG TAB PO PRN (07:50)
[2021-07-17] MEDS: VITAMIN D 5,000 UNIT CAP PO SCH (07:50)
[2021-07-17] MEDS: ENOXAPARIN 40 MG/0.4 ML SQ SCH (07:51)
--- NOTE | 2021-07-17 12:58 | P.PN ---
Subjective Date of Service: 07/17/21 Primary Care Provider: None Chief Complaint: Rhabdomyolysis Patient has no complain today. Serum CK level has trended down significantly. He denies any pain. He has been ambulating without issues. Physical Examination - Vital Signs Temperature: 98.7 F Blood Pressure: 135/68 Pulse: 106 Respirations: 20 Pulse Ox (%): 100 Assessment And Plan - Plan Physical Exam General: Alert, In no apparent distress, Oriented x3 HEENT: Normal conjunctiva, sclera anicteric Respiratory: Clear to auscultation bilaterally, Normal air movement Cardiovascular: Sinus tachycardia, Normal S1 S2 Gastrointestinal: Soft, nontender, nondistended Musculoskeletal: No tenderness, no swelling. Integumentary: Superficial abrasion-posterior R shoulder. Neurological: Normal gait, Normal speech, Normal strength at 5/5 x4 extr Problem list: Rhabdomyolysis WESTLEY LFT elevation, secondary to rhabdomyolysis Sinus tachycardia Anxiety disorder Plan: IV fluid discontinued. CK level is trending. Renal function has been stay. Consider discharge 1 CK level trended down to 2000 or less. Monitor CK levels daily. Autoimmune screen is pending. MRI of the brain is negative. Suspected seizures. EEG is pending. Also ruling out pheochromocytoma given panic disorder, tachycardia and hypertension. Test result may have to be followed as an outpatient.
[2021-07-18 05:20] LABS: ALT/SGPT 163 U/L (12-78); AST/SGOT 108 U/L (15-37); Albumin 3.5 g/dL (3.4-5.0); Alkaline Phosphatase 61 U/L (45-117); BUN Blood Urea Nitrogen 17 mg/dL (7-18); Bicarbonate 30 mmol/L (21-32); Bilirubin Total 0.5 mg/dL (0.2-1.0); Glucose Level 97 mg/dL (74-106); Potassium 4.3 mmol/L (3.5-5.1); Protein, Total 7.1 g/dL (6.4-8.2); Sodium Level 140 mmol/L (136-145)
[2021-07-18 05:23] LABS: Creatine Phosphokinase 1752 U/L (39-308)
[2021-07-18] MEDS: ENOXAPARIN 40 MG/0.4 ML SQ SCH (08:03)
[2021-07-18] MEDS: VITAMIN D 5,000 UNIT CAP PO SCH (08:03)
--- NOTE | 2021-07-18 09:07 | P.DS ---
Admission Date: 07/12/21 Discharge Date: 07/18/21 Primary Care Provider: None Disposition: ROUTINE DISCHARGE Discharge Condition: FAIR Reason for Admission: Rhabdomyolysis - Problems (1) Rhabdomyolysis Status: Acute (2) Panic disorder Status: Acute (3) Acute renal failure Status: Acute (4) Underweight Status: Acute Brief History of Present Illness: 19-year-old male with no medical history presented to the emergency ro om for body aches, malaise/fatigue. Patient reported he had an episode 2 days ago where he went to sleep in his bed and woke up downstairs in the living room by the couch, did not remember how he ended up there, the next day patient had right arm pain as well as some vomiting ever since then experienced myalgias. Patient denied any drug use, alcohol use, trauma. There were no signs of infection or illness, supplement use, [id number] medicine use. Labs in the ED significant for white blood cell count 13 T bili 1.1 AST 350 CPK greater than 14,000 urinalysis with 3+ blood, 2+ protein urine, drug screen negative Covid test negative. Vital signs stable. Patient hospitalized for further management. Hospital Course: Diagnosis Rhabdomyolysis WESTLEY LFT elevation, secondary to rhabdomyolysis Sinus tachycardia Anxiety disorder Patient admitted to the medical floor and treated aggressively with IV fluid. Nephrology and cardiology were consulted to assist with management. His rhabdomyolysis is likely secondary to trauma but there was concern for other metabolic disease or inflammatory disease. Multiple signed out labs including TRISTEN, and Aldolase were obtained and the results are pending. Urine metanephrine also ordered to screen for pheochromocytoma given his panic disorder and intermittent tachycardia. CK level improved slowly and later trended down quickly. Level today is 1752. IV fluid discontinued Renal function improved with IV hydration MRI of the brain is negative. Suspected seizures. EEG done. Result is pending. No seizures during the hospital stay. Patient deemed stable for discharge. He is an issue with and has no PCP. I suggested he can obtain primary care from [facility]. Patient advised to stay hydrated. Vital Signs/Physical Exam: Temp Pulse Resp BP Pulse Ox 97.3 F 72 16 133/70 98 07/18/21 04:00 07/18/21 04:00 07/18/21 04:00 07/18/21 04:00 07/18/21 04:00 General: Alert, In no apparent distress, Oriented x3, Other (Underweight) HEENT: Mucous membr. moist/pink Neck: JVD not distended Respiratory: Clear to auscultation bilaterally, Normal air movement Cardiovascular: No edema, Regular rate/rhythm, Normal S1 S2, No murmurs Capillary refill: <2 Seconds Gastrointestinal: Normal bowel sounds, Soft and benign, Non-distended, No tenderness Musculoskeletal: No swelling Integumentary: No rashes Neurological: Normal strength at 5/5 x4 extr Laboratory Data at Discharge: WBC 8.80 K/uL (4.3-10.9) 07/17/21 04:56 Hgb 13.6 g/dL (13.6-17.9) 07/17/21 04:56 Hct 40.0 % (39.6-49.0) 07/17/21 04:56 Plt Count 227 K/uL (152-406) 07/17/21 04:56 PT 11.8 SECONDS (9.5-12.5) 07/15/21 06:03 INR 1.03 07/15/21 06:03 Sodium 140 mmol/L (136-145) 07/18/21 04:07 Potassium 4.3 mmol/L (3.5-5.1) 07/18/21 04:07 BUN 17 mg/dL (7-18) 07/18/21 04:07 Creatinine 0.77 mg/dL (0.55-1.3) 07/18/21 04:07 Glucose 97 mg/dL (74-106) 07/18/21 04:07 Uric Acid 6.6 mg/dL (3.5-7.2) 07/12/21 06:59 Phosphorus 5.2 mg/dL (2.5-4.9) H 07/15/21 06:03 Magnesium 2.0 mg/dL (1.8-2.4) 07/18/21 04:07 Total Bilirubin 0.5 mg/dL (0.2-1.0) 07/18/21 04:07 AST 108 U/L (15-37) H 07/18/21 04:07 ALT 163 U/L (12-78) H 07/18/21 04:07 Alkaline Phosphatase 61 U/L (45-117) 07/18/21 04:07 Lipase 69 U/L (73-393) L 07/12/21 00:32 Home Medications: Cholecalciferol (Vitamin D3) [Vitamin D 5,000 IU Cap*] 5,000 unit PO DAILY #30 cap 07/18/21 New Medications: Cholecalciferol (Vitamin D3) [Vitamin D 5,000 IU Cap*] 5,000 unit PO DAILY #30 cap Diet: Regular Activity: Ad guillermina Followup: Bhupendra Dial DO [ACTIVE - CAN ADMIT] - Ellis Robledo MD [ASSOCIATE-ACTIVE - CAN ADMIT] - Dean Overton [ACTIVE - CAN ADMIT] - NONE,NONE [Primary Care Provider] - 1-2 Weeks (follow up with [facility]) Time spent managing pt's care (in minutes): 38
--- NOTE | 2021-07-18 09:36 | ECHO ---
HEIGHT: 5 ft 9 in WEIGHT: 120 lb 0 oz DATE OF STUDY: 07/17/[address]: Piotr Shaikh MD 2-DIMENSIONAL: YES M.MODE: YES DOPPLER: YES COLOR FLOW: YES TDS: PORTABLE: DEFINITY: BUBBLE STUDY: DIAGNOSIS: RHABDO, INTERMITTENT SINUS TACHYCARDIA CARDIAC HISTORY: CATHERIZATION: NO SURGERY: NO PROSTHETIC VALVE: NO PACEMAKER: NO MEASUREMENTS (cm) DIASTOLIC (NORMALS) SYSTOLIC (NORMALS) IVSd 0.8 (0.6-1.2) LA Diam 2.0 (1.9-4.0) LVEF 61% LVIDd 2.9 (3.5-5.7) LVIDs 2.0 (2.0-3.5) %FS 31% LVPWd 0.9 (0.6-1.2) Ao Diam 2.3 (2.0-3.7) 2 DIMENSIONAL ASSESSMENT: RIGHT ATRIUM: NORMAL LEFT ATRIUM: NORMAL RIGHT VENTRICLE: NORMAL LEFT VENTRICLE: NORMAL TRICUSPID VALVE: NORMAL MITRAL VALVE: NORMAL PULMONIC VALVE: NORMAL AORTIC VALVE: NORMAL PERICARDIAL EFFUSION: NONE AORTIC ROOT: NORMAL LEFT VENTRICULAR WALL MOTION: DOPPLER/COLOR FLOW: COMMENTS: NORMAL 2-DIMENSIONAL ECHOCARDIOGRAM WITH DOPPLER. NO WALL MOTION ABNORMALITY. NO EFFUSION. TECHNOLOGIST: ARLET TABARES
[2021-07-18 10:27] VITALS: O2SAT 99
--- NOTE | 2021-07-18 12:03 | CON ---
Date of Consultation: 07/17/2021 Reason For Consultation: Unexplained sinus tachycardia. History Of Present Illness: Mr. Hooper is 20. No previous past history. Came in with unexplained rhabdomyolysis and with concern about his kidneys. Since he has been in the hospital, he has had si nus tachycardia that is unexplained. Echocardiogram was ordered. I read the echo as perfectly frankie l without any effusion or wall motion abnormalities. The patient denied any cardiac symptoms. Past Medical History: Negative. Allergies: NONE. Review of Systems: Negative. Social History: Negative. Family History: Noncontributory. Physical Examination: General: Revealed sinus tachycardia. The patient in no acute distress. Slightly somnolent, appeare d to be fatigued. Appeared his stated age. HEENT: Negative. Neck: Supple with no bruit. Chest: Clear. Cardiac: Normal. Abdomen: Benign. Extremities: Revealed no clubbing, cyanosis, or edema. Diagnostic Data: Showed normal x-ray, normal echo, normal EKG except for sinus tachycardia, rhabdomy olysis otherwise. Impression And Plan: Rhabdomyolysis, unknown etiology. Normal echo. Sinus tachycardia secondary to the rhabdomyolysis. He needs to have an extensive, I think workup as an outpatient to rule out some autoimmune disease or connective tissue disease. May need some kind of muscle biopsy down the road by a neurologist. No heart recommendation at this point. RAMANDEEP/ROSALBA Voice ID: [id number] Report ID: [id number]
[2021-07-18 12:39] VITALS: BP 123/86; TEMP 98.1
--- NOTE | 2021-07-19 08:01 | EEG ---
CHART: [id number] TEST ID#: [id number] DATE OF STUDY: 07/13/2021 THE EEG WAS RECORDED PORTABLE IN THE PATIENT'S ROOM ON A 17 CHANNEL MACHINE. ELECTRODES WERE APPLIED IN THE USUAL MANNER USING THE INTERNATIONAL 10-20 SYSTEM. THE WAKING BACKGROUND RHYTHM IN THIS RECORD CONSISTS OF VERY WELL DEVELOPED AND WELL ORGANIZED WAVES OF 10.5 HZ., MAXIMAL IN THE POSTERIOR HEAD REGIONS WHICH ATTENUATE NORMALLY WITH EYE OPENING. LOW-VOLTAGE 18-22 HZ ACTIVITY IS EXPRESSED IN THE FRONTAL REGION. THERE ARE NO FOCAL OR LATERALIZING FEATURES. NO EPILEPTIFORM ACTIVITY APPEARS. SLEEP OCCURRED NATURALLY. IN ADDITION NORMAL SLEEP PATTERNS ARE PRESENT. HYPERVENTILATION WAS NOT PERFORMED. PHOTIC STIMULATION PRODUCED FAIR DRIVING BILATERALLY. IMPRESSION: NORMAL EEG FOR THE AGE OF THE PATIENT IN [place], DROWSINESS AND SLEEP.
[2021-07-30 12:14] LABS: Urine 24HR Volume Metan 2670
== END 2021-07-18 11:50 | disposition home or self-care (01) | DRG 558 ==
LOC: ER 23:49 → ERHOLD 07-12 03:14 → 2ND 07-12 05:10 → OBSVTOIN 07-12 13:36
PROVIDERS: ADMIT Hospitalist; ATTEND Hospitalist
DX: M62.82 Rhabdomyolysis (principal); N17.9 Acute kidney failure, unspecified; Z68.1 Body mass index [BMI] 19.9 or less, adult; E44.0 Moderate protein-calorie malnutrition; F41.0 Panic disorder [episodic paroxysmal anxiety]; R79.89 Other specified abnormal findings of blood chemistry; R00.0 Tachycardia, unspecified; F41.9 Anxiety disorder, unspecified; I10 Essential (primary) hypertension; D35.00 Benign neoplasm of unspecified adrenal gland; E83.51 Hypocalcemia; Z20.822 Contact with and (suspected) exposure to COVID-19
CPT/HCPCS: 36415; 70450; 70553; 71045; 76705; 80048; 80053; 80076; 80307; 81001; 81003; 82085; 82550; 83690; 83735; 83835; 83874; 84100; 84145; 84439; 84443; 84550; 85025; 85610; 85652; 86038; 86140; 86308; 87040; 90471; 93005; 93306; 95816; 96374; 97161; 99284; A9577; G0378; J1650; J3475; J7030; J7120; U0003